=== PATIENT | female | born 1970 | race Caucasian/White ===

== ENCOUNTER 2016-06-11 05:50 | Day surgery (SDC) | payer MEDICARE, OTHER ==
[2016-06-06 12:07] LABS: BASOPHILS 0.2 %; BASOPHILS ABSOLUTE 0.03 10/3/uL (0.0-0.16); EOSINOPHILS 0.9 %; EOSINOPHILS ABSOLUTE 0.11 10/3/uL (0.0-0.53); HEMATOCRIT 38.3 % (36.0-48.0); HEMOGLOBIN 12.6 g/dL (12.0-16.0); IMMATURE GRANULOCYTES 0.3 %; IMMATURE GRANULOCYTES ABSOLUTE 0.04 10/3/uL (0.0-0.11); LYMPHOCYTES 19.4 %; LYMPHOCYTES ABSOLUTE 2.47 10/3/uL (0.67-4.30); MEAN CORPUS HGB CONC 32.9 g/dL (32.0-36.0); MEAN CORPUSCULAR HEMOGLOB 28.6 pg (26.0-34.0); MEAN PLATELET VOLUME 9.7 fL (9.2-13.0); MONOCYTES ABSOLUTE 0.63 10/3/uL (0.21-1.20); NEUTROPHILS 74.2 %; NEUTROPHILS ABSOLUTE 9.44 10/3/uL (2.02-8.40); PLATELET COUNT 328 10/3/uL (150-400); RBC DISTRIBUTION WIDTH 14.6 % (12.0-16.0); WHITE BLOOD CELLS 12.7 10/3/uL (4.5-10.5)
[2016-06-06 12:08] LABS: MANUAL DIFF NO %
[2016-06-06 13:27] LABS: BUN (BLOOD UREA NITROGEN) 7 MG/DL (6-23); CALCIUM, SERUM 9.3 MG/DL (8.5-10.4); CHLORIDE, SERUM 108 MMOL/L (96-112); CO2 (CARBON DIOXIDE) 28 MMOL/L (24-34); CREATININE 0.84 MG/DL (0.55-1.02); GFR AFRICAN AMERICAN 97 ML/MIN (>=60); GFR NON AFRICAN AMERICAN 83 ML/MIN (>=60); GLUCOSE, SERUM 95 MG/DL (60-99); POTASSIUM, SERUM 4.1 MMOL/L (3.5-5.3); SODIUM, SERUM 142 MMOL/L (135-148)
--- NOTE | ~2016-06-11 | OP ---
Record Of Operation [facility] [address] [place]. [address] NAME: THAD GAMEZ : 68 STATUS : [facility]#: [id number] AGE: 45 ADM/REG DATE : 06/11/16 MR#: [id number] REPORT SERV DATE: 06/11/16 DICTATED BY: CHANTELL CALVO DATE: 06/11/16 REPORT STATUS : Draft TRANSCRIBED BY: KEIRA DATE: 06/11/16 DATE OF PROCEDURE: 06/11/2016 SERVICE: Otolaryngology. PREOPERATIVE DIAGNOSIS: Right epidermal inclusion cyst, right posterior neck. POSTOPERATIVE DIAGNOSIS: Right epidermal inclusion cyst, right posterior neck. PROCEDURE: Excision of right epidermal inclusion cyst, right posterior neck. ON SITE PROPERTY MANAGER: Walter Rhoades. ANESTHESIA: Laryngeal mask airway anesthesia. COMPLICATIONS: None. SPECIMEN: Right posterior neck cyst. FINDINGS: The patient had an inflamed epidermal inclusion cyst in the right posterior neck. STATEMENT OF MEDICAL NECESSITY: This is a 45-year-old HIV-positive female who was referred to me initially with infected epidermal inclusion cyst measuring about 2-3 cm. She was treated with antibiotics. The inflammation went down. I recommended removal. Given her HIV status and location of the neck cyst, I elected to do this under anesthesia. STATEMENT OF OPERATION: The patient was brought to the operating room in supine position and transferred to the operating room table. All pressure points were padded. Laryngeal mask airway was established. 3 mL of 1% lidocaine with epinephrine injected in the skin and soft tissue around the area. An ellipse was marked out in a natural skin tension line with a marking pen. The patient was then prepped and draped in the usual fashion. A 15 blade was used to incise through the dermis. Tenotomy scissors were used to dissect around the cyst, it was removed completely, sent in formalin. The wound was irrigated. Hemostasis obtained with bipolar cautery. The wound was closed with buried 4-0 Vicryl sutures and Dermabond. This concluded the case. The patient was turned back over to Anesthesia, where she awoke, was extubated, and transferred to the PACU in stable condition. KAMLESH/KEIRA Chantell Calvo MD / [id number] Record Of Operation [address] [address] NAME: THAD GAMEZ : 68 STATUS : [facility] PAT#: [id number] AGE: 45 ADM/REG DATE : 06/11/16 MR#: [id number] REPORT SERV DATE: 06/11/16 DICTATED BY: CHANTELL CALVO DATE: 06/11/16 REPORT STATUS : Draft TRANSCRIBED BY: KEIRA DATE: 06/11/16 CC: MD Cedrick Garcia M.D.
[~2016-06-11 05:50] MED LIST: ESTRADIOL2 MG PO; EXCEDRIN EXTRA1 EACH PO; LEXIVA PO; MULTIPLE VIT PO; NORVIR100 PO; PR12.5 PO; PROVERA5 MG PO; T PO; VIREAD 300 MG300 MG PO; ZIAGEN 300 MG300 MG PO
[2016-06-11 07:11] LABS: BASOPHILS 0.2 %; BASOPHILS ABSOLUTE 0.03 10/3/uL (0.0-0.16); EOSINOPHILS 1.8 %; EOSINOPHILS ABSOLUTE 0.25 10/3/uL (0.0-0.53); HEMATOCRIT 37.5 % (36.0-48.0); HEMOGLOBIN 12.6 g/dL (12.0-16.0); IMMATURE GRANULOCYTES 0.4 %; IMMATURE GRANULOCYTES ABSOLUTE 0.05 10/3/uL (0.0-0.11); LYMPHOCYTES 25.2 %; LYMPHOCYTES ABSOLUTE 3.48 10/3/uL (0.67-4.30); MEAN CORPUS HGB CONC 33.6 g/dL (32.0-36.0); MEAN CORPUSCULAR HEMOGLOB 29.2 pg (26.0-34.0); MEAN PLATELET VOLUME 9.1 fL (9.2-13.0); MONOCYTES 5.1 %; MONOCYTES ABSOLUTE 0.71 10/3/uL (0.21-1.20); NEUTROPHILS 67.3 %; PLATELET COUNT 295 10/3/uL (150-400); RBC DISTRIBUTION WIDTH 14.7 % (12.0-16.0); RED CELL COUNT 4.31 10/6/uL (4.0-5.6); WHITE BLOOD CELLS 13.8 10/3/uL (4.5-10.5)
[2016-06-11 07:14] LABS: MANUAL DIFF NO %
== END 2016-06-11 10:11 | disposition home or self-care (01) ==
LOC: SDC 05:50
PROVIDERS: Otolaryngology
PROC: 0HB4XZZ Excision of Neck Skin, External Approach (ICD-10-PCS; principal; 2016-06-11 07:15)
DX: L72.0 Epidermal cyst (principal); F17.210 Nicotine dependence, cigarettes, uncomplicated; J45.909 Unspecified asthma, uncomplicated; K21.9 Gastro-esophageal reflux disease without esophagitis; F43.10 Post-traumatic stress disorder, unspecified; F41.9 Anxiety disorder, unspecified; Z88.0 Allergy status to penicillin; Z88.2 Allergy status to sulfonamides; Z88.8 Allergy status to other drugs, medicaments and biological substances; Z21 Asymptomatic human immunodeficiency virus [HIV] infection status; Z91.040 Latex allergy status; Z88.1 Allergy status to other antibiotic agents; Z79.82 Long term (current) use of aspirin; Z79.899 Other long term (current) drug therapy; Z98.890 Other specified postprocedural states
CPT/HCPCS: 80048; 85025; 88304; 93005; A9270-GY; J2250; J2370; J2405; J3010